=== PATIENT | female | born 1945 ===

== ENCOUNTER 2020-12-06 19:50 | Emergency (ER) | payer OTHER ==
[~2020-12-06] VITALS: Ht 152.4 cm; Wt 35.3 kg
--- NOTE | 2020-12-06 20:00 | NUR ---
patient resting in bed in NAD. up to BSC with assistance. daughter at bedside and states that patient has been unsteady with ambulation and confused more than usual but when RN asked if patient is confused at baseline, daughter states she is not confused at baseline. A&Ox4. follows commands. rectal temp taken and 102.1F. tylenol being administered. IVF infusing per order. will continue to monitor. safety maintained
[2020-12-06] MEDS ORDERED: SODIUM CHLORIDE FLUSH 10ML SYR IVF ONE (20:30)
[2020-12-06] MEDS ORDERED: SODIUM CHLORIDE 0.9% 1,000ML IVBOLUS ONE (20:30)
[2020-12-06] MEDS ORDERED: ACETAMINOPHEN 500 MG TABLET PO ONE (21:00)
[2020-12-06] MEDS ORDERED: PLEASE ENTER ALLERGIES MC SCH (21:00)
--- NOTE | 2020-12-06 21:00 | NUR ---
patient resting in bed with no complaint. coughing infreq without production of sputum. daughter remains at bedside. patient answers questions appropriately. stretcher in lowest position. will continue to monitor.
[2020-12-06] MEDS ORDERED: ACETAMINOPHEN 500 MG TABLET ONE (21:03)
[2020-12-06 21:04] LABS: BASOPHILS % (AUTO) 0 % (0-1); EOSINOPHILS % (AUTO) 0 % (1-7); LYMPHOCYTES % (AUTO) 12 % (22-44); MEAN CORPUSCULAR HEMOGLOBIN 31.2 pg (27.0-34.8); MEAN CORPUSCULAR HGB CONC 34.5 g/dL (32.4-35.8); MEAN PLATELET VOLUME 7.5 fL (7.4-10.4); MONOCYTES % (AUTO) 7 % (2-9); NEUTROPHILS % (AUTO) 81 % (42-75); PLATELET COUNT 249 x10^3/uL (130-400); RED BLOOD COUNT 4.69 x10^6/uL (3.82-5.3); RED CELL DISTRIBUTION WIDTH 13.9 % (9.6-15.2)
[2020-12-06 21:11] LABS: MD NO
[2020-12-06 21:14] LABS: ALBUMIN 3.6 g/dL (3.4-5.0); ANION GAP 9 mmol/L (5-15); CALCIUM 9.2 mg/dL (8.5-10.1); CHLORIDE 98 mmol/L (98-107)
[2020-12-06 21:17] LABS: ALANINE AMINOTRANSFERASE 21 U/L (12-78); ALKALINE PHOSPHATASE 107 U/L (45-117); BILIRUBIN,TOTAL 0.4 mg/dL (0.2-1.0); CREATININE 0.94 mg/dL (0.55-1.02); TOTAL PROTEIN 8.3 g/dL (6.4-8.2)
--- NOTE | 2020-12-06 22:08 | NUR ---
55mL for random bladder scan
[2020-12-06 22:33] LABS: MICROSCOPIC INDICATED
[2020-12-06 23:11] LABS: MICROSCOPIC INDICATED
[2020-12-06 23:59] VITALS: BP 104/49
--- NOTE | 2020-12-07 00:15 | NUR ---
discharge instructions reviewed with patient and patient's daughter. no further questions at this time. IV removed and pressure dressing applied. no bleeding at this time. covid informational sheet provided and reviewed with patient and daughter at bedside. VS remain stable on RA. all personal belongings with patient.
== END 2020-12-07 00:25 | disposition home or self-care (01) ==
LOC: ED 22:57
DX: U07.1 COVID-19 (principal); N39.0 Urinary tract infection, site not specified; R53.1 Weakness; R50.9 Fever, unspecified
CPT/HCPCS: 36415; 71045; 80053; 81001; 83605; 84145; 85025; 87040; 87086; 87635; 93005; 96360; 96361; 99285; J7030